=== PATIENT | male | born 1965 | race Caucasian/White ===

== ENCOUNTER 2018-10-02 11:14 | Inpatient (IN) | payer OTHER ==
[~2018-10-02] VITALS: Ht 180.3 cm; Wt 81.8 kg
[2018-10-02 12:25] LABS: HEMATOCRIT 40.5 % (42.0-54.0); HEMOGLOBIN 13.6 g/dL (13.5-17.5); MCH 27.9 pg (26.0-34.0); MCHC 33.6 g/dL (31.0-37.0); MCV 83.2 fL (80.0-100.0); MEAN PLATELET VOLUME 9.5 fL (7.4-10.4); PLATELET COUNT 259 10x3/uL (130-400); RBC 4.87 10x6/uL (4.20-6.10); RDW 14.1 % (11.5-14.5); WBC 20.3 10x3/uL (4.8-10.8)
[2018-10-02 12:45] LABS: INR 1.02 (0.85-1.17); PROTIME 12.9 SECONDS (11.6-15.0)
[2018-10-02 12:47] LABS: D-DIMER-QUANTITATIVE 0.61 ug/mLFEU (0.20-0.54)
[2018-10-02 12:50] LABS: ALBUMIN 3.1 g/dL (3.4-5.0); ALKALINE PHOSPHATASE 141 U/L (46-116); ALT (SGPT) 62 U/L (10-68); BILIRUBIN - TOTAL 0.27 mg/dL (0.2-1.3); CALC OSMOLALITY 283 mosm/kg (275-300); CALCIUM 8.2 mg/dL (8.5-10.1); CARBON DIOXIDE 29.1 mmol/L (21.0-32.0); CHLORIDE - SERUM 104 mmol/L (98-107); CREATININE - SERUM 0.8 mg/dL (0.6-1.3); GLUCOSE 85 mg/dL (74-106); PROTEIN - SERUM 7.1 g/dL (6.4-8.2); SODIUM 142 mmol/L (136-145); UREA NITROGEN 17 mg/dL (7-18); eGFR NON AFRICAN AMERICAN > 90 mL/min (90-120)
[2018-10-02 12:58] LABS: LYMPHOCYTES 20 % (15-50); MONOCYTES 11 % (2-11); NEUTROPHILS 69 % (40-80); PLATELET ESTIMATE NORMAL; ROULEAUX OCC
[2018-10-02 13:01] VITALS: BP 158/99
[2018-10-02 13:15] VITALS: BP 201/128
[2018-10-02 13:30] VITALS: BP 187/125
--- NOTE | 2018-10-02 16:56 | NUR ---
TRANSFERED FROM ER BY STRETCHER. OREINTED TO ROOM. CALL LIGHT IN REACH. WILL CONT. PLAN OF CARE.
[2018-10-02] MEDS ORDERED: LISINOPRIL30 MG PO (17:04)
[2018-10-02 17:16] VITALS: BP 171/97; Ht 180.3 cm; Wt 81.8 kg
--- NOTE | 2018-10-02 17:17 | NUR ---
RECEIVED PT FROM ER. PT IS AAO AND UP AD VIDA. RR EVEN AND LABORED ON EXERTION ON 2L 02. NS INFUSIGN @100ML/HR VIA R.AC PIV. TELEMETRY APPLIED TO PT AND IS CURRENTLY RUNNING 106 SINUS TACH. NORCO ADMINISTERED FOR PAIN LEVEL 10/17 GENERALIZED. PT DENIES ANY FURTHER NEEDS. WILL CTM. FALL PRECAUTIONS IN PLACE
--- NOTE | 2018-10-02 19:48 | NUR ---
EVENING ROUNDS COMPLETED. REPORT RECEIVED. PT SITTING UP IN BED WITH EYES OPEN, RR EVEN AND UNLABORED. BED IN LOW POSITION. NO S/S OF DISTRESS NOTED. INTRODUCED SELF TO PT. PROVIDED PT ONE 250 ML CUP OF APPLE JUICE PER PT REQUEST. PT DENIES FURTHER NEEDS AT THIS TIME. 104 SINUS TAC ON TELEMETRY. CALL LIGHT IN REACH. WILL CTM.
[2018-10-02 20:00] VITALS: BP 134/83
--- NOTE | 2018-10-02 20:14 | NUR ---
ADMINISTERED ORDERED ANALGESIC FOR COMPLAINTS OF PAIN IN NECK AND BACK. PT STATES PAIN IS AN 8 ON A SCALE OF 0-10.
[2018-10-03] VITALS: BP 174/107
--- NOTE | 2018-10-03 00:19 | NUR ---
CALLED NURSE PRACTICIONER FOR [facility] AND NOTIFIED HIM OF PT BLOOD PRESSURE OF 174/107. HE ORDERED 0.1 MG CLONIDINE TAB PO EVERY 8 HOURS FOR PT BLOOD PRESSURE GREATER THAN 170.
--- NOTE | 2018-10-03 00:20 | NUR ---
ADMINISTERED ORDERED ACETAMINOPHEN FOR PT TEMPERATURE OF 101.7 F
[2018-10-03 04:00] VITALS: BP 147/100
--- NOTE | 2018-10-03 04:31 | NUR ---
I have reviewed this patient and I concur with the Shift Assessment completed by the Licensed Practical Nurse today this shift.
[2018-10-03 05:52] LABS: BASOPHILS 0.2 % (0-2); EOSINOPHILS 3.2 % (0-7); HEMATOCRIT 40.9 % (42.0-54.0); HEMOGLOBIN 13.3 g/dL (13.5-17.5); IMMATURE GRANULOCYTES 0.4 % (0-5); LYMPHOCYTES 19.1 % (15-50); MCH 27.3 pg (26.0-34.0); MCHC 32.5 g/dL (31.0-37.0); MEAN PLATELET VOLUME 10.1 fL (7.4-10.4); MONOCYTES 11.2 % (2-11); NEUTROPHILS 65.9 % (40-80); PLATELET COUNT 240 10x3/uL (130-400); RBC 4.87 10x6/uL (4.20-6.10)
[2018-10-03 05:55] LABS: WBC 11.4 10x3/uL (4.8-10.8)
[2018-10-03 06:01] LABS: CALC OSMOLALITY 275 mosm/kg (275-300); CALCIUM 8.1 mg/dL (8.5-10.1); CARBON DIOXIDE 29.1 mmol/L (21.0-32.0); CHLORIDE - SERUM 104 mmol/L (98-107); CREATININE - SERUM 0.9 mg/dL (0.6-1.3); GLUCOSE 90 mg/dL (74-106); POTASSIUM - SERUM 4.2 mmol/L (3.5-5.1); SODIUM 138 mmol/L (136-145); eGFR NON AFRICAN AMERICAN > 90 mL/min (90-120)
[2018-10-03 06:03] LABS: UREA NITROGEN 12 mg/dL (7-18)
--- NOTE | 2018-10-03 06:08 | NUR ---
PT RESTING IN BED WITH EYES CLOSED, RR EVEN AND UNLABORED. OXYGEN AT 4 LITERS BY NASAL CANNULA. BED IN LOW POSITION. NO S/S OF DISTRESS NOTED. CALL LIGHT IN REACH. WILL CTM.
--- NOTE | 2018-10-03 07:00 | NUR ---
RECEIVED REPORT. ASSUMED CARE OF PATIENT. RESTING IN BED WITH EYES CLOSED. RESP EVEN AND UNLABORED. IV FLUIDS INFUSING ORDERED. NO DISTRESS. CALL LIGHT WITHIN REACH.
--- NOTE | 2018-10-03 08:27 | NUR ---
MEDICATED FOR PAIN AT THIS TIME. PATIENT VERY ANXIOUS, SPILLING ITEMS ON TRAY, MUMBLING AND TALKING UNDER HIS BREATH. DURING REPORT THIS AM, NOC NURSE STATED PATIENT WAS TACHYCARDIC AND SEEMED NERVOUS PRIOR TO FALLING ASLEEP. WILL MONITOR.
[2018-10-03 08:34] VITALS: BP 190/104
[2018-10-03 12:59] VITALS: BP 154/98
--- NOTE | 2018-10-03 13:40 | NUR ---
ORANGE JUICE PROVIDED. PATIENT RESTING IN BED WITH EYES CLOSED. IV FLUIDS INFUSING ORDERED. DENIES NEEDS. NO DISTRESS.
--- NOTE | 2018-10-03 14:24 | NUR ---
MEDICATED FOR PAIN AT THIS TIME. NO DISTRESS. IV FLUIDS INFUSING ORDERED.
--- NOTE | 2018-10-03 17:43 | NUR ---
RESTING IN BED WITH EYES OPEN. PATIENT MUMBLING BUT SPEAKS UP WHEN ASKED. DINNER TRAY UNTOUCHED. ENCOURAGED PATIENT TO CONSUME PM MEAL. CALL LIGHT WITHIN REACH. IV FLUIDS INFUSING ORDERED.
[2018-10-03 17:53] VITALS: BP 141/87
--- NOTE | 2018-10-03 19:50 | NUR ---
EVENING ROUNDS COMPLETED. REPORT RECEIVED. PT SITTING UP IN BED WITH EYES OPEN, RR EVEN AND UNLABORED. OXYGEN AT 4 LITERS BY NASAL CANNULA. BED IN LOW POSITION. NO S/S OF DISTRESS NOTED. RT AC PIV INFUSING NORMAL SALINE ORDERED. INTRODUCED SELF TO PT. ADMINISTERED ORDERED CATAPRES 0.1 MG TAB FOR PT BLOOD PRESSURE OF 181/95 AND ORDERED HYDROCODONE 10 PER PT COMPLAINTS OF PAIN IN NECK AND BACK. PT STATES PAIN OF A 7 ON A SCALE OF 0-10. PT DENIES FURTHER NEEDS AT THIS TIME. 70 NORMAL SINUS ON TELEMETRY. CALL LIGHT IN REACH. WILL CTM.
[2018-10-03 20:00] VITALS: BP 181/95
[2018-10-04] VITALS: BP 152/95
--- NOTE | 2018-10-04 00:52 | NUR ---
PT RESTING COMFORTABLY IN BED WITH EYES CLOSED, RR EVEN AND UNLABORED. BED IN LOW POSITION. RIGHT AC PIV INFUSING NS ORDERED. 64 SINUS ON TELEMETRY. CALL LIGHT IN REACH. WILL CTM.
[2018-10-04 04:00] VITALS: BP 156/102
--- NOTE | 2018-10-04 04:58 | NUR ---
I have reviewed this patient and I concur with the Shift Assessment completed by the Licensed Practical Nurse today this shift.
--- NOTE | 2018-10-04 05:52 | NUR ---
PT RESTING COMFORTABLY IN BED WITH EYES CLOSED, RR EVEN AND UNLABORED. BED IN LOW POSITION. NO S/S OF DISTRESS NOTED. CALL LIGHT IN REACH. WILL CTM.
[2018-10-04 06:09] LABS: BASOPHILS 0.2 % (0-2); EOSINOPHILS 7.6 % (0-7); HEMATOCRIT 42.1 % (42.0-54.0); HEMOGLOBIN 14.1 g/dL (13.5-17.5); IMMATURE GRANULOCYTES 0.6 % (0-5); LYMPHOCYTES 22.1 % (15-50); MCH 27.8 pg (26.0-34.0); MCHC 33.5 g/dL (31.0-37.0); MCV 82.9 fL (80.0-100.0); MEAN PLATELET VOLUME 9.9 fL (7.4-10.4); MONOCYTES 10.4 % (2-11); NEUTROPHILS 59.1 % (40-80); PLATELET COUNT 221 10x3/uL (130-400); RBC 5.08 10x6/uL (4.20-6.10); RDW 13.9 % (11.5-14.5); WBC 9.9 10x3/uL (4.8-10.8)
[2018-10-04 06:20] LABS: CALC OSMOLALITY 277 mosm/kg (275-300); CALCIUM 8.6 mg/dL (8.5-10.1); CARBON DIOXIDE 27.8 mmol/L (21.0-32.0); CHLORIDE - SERUM 104 mmol/L (98-107); CREATININE - SERUM 0.7 mg/dL (0.6-1.3); GLUCOSE 93 mg/dL (74-106); POTASSIUM - SERUM 4.2 mmol/L (3.5-5.1); SODIUM 140 mmol/L (136-145); UREA NITROGEN 11 mg/dL (7-18); eGFR NON AFRICAN AMERICAN > 90 mL/min (90-120)
--- NOTE | 2018-10-04 07:00 | NUR ---
RECEIVED REPORT. ASSUMED CARE OF PATIENT. RESTING WITH EYES CLOSED. EASILY AROUSED. RESP EVEN AND UNLABORED. NO DISTRESS. DENIES NEEDS.
--- NOTE | 2018-10-04 08:22 | NUR ---
MEDICATED FOR PAIN AT THIS TIME. NO DISTRESS.
[2018-10-04 08:30] VITALS: BP 181/97
[2018-10-04 12:22] VITALS: BP 146/87
--- NOTE | 2018-10-04 14:32 | NUR ---
PATIENT FOUND WITH 20 CATHETER DISLODGED FROM RIGHT AC AFTER RECEIVING SHOWER. IV CATHETER REMOVED, CATHETER TIP INTACT. NO BLEEDING FROM SITE. THIS TECHNOLOGY TRAINING ASSOCIATE HAS TRIED TWICE TO PLACE IV CATHETER WITHOUT SUCCESS. PATEINT VEINS ARE HARD AND DIFFICULT TO INSERT IV CATHETER. HAVE ASKED THE CHARGE NURSE TO ASSIST WITH PLACING IV CATHETER.
--- NOTE | 2018-10-04 15:00 | NUR ---
MEDCATED FOR PAIN.
--- NOTE | 2018-10-04 15:28 | NUR ---
PATIENT TOLD THIS SOAP WORKER TO TRY IV PLACEMENT AGAIN AFTER 2 OTHER NURSES TRIED AND WERE UNSUCCESSFUL. 20 GAUGE IV PLACED TO RIGHT WRIST X 1 STICK. GOOD BLOOD RETURN, EASY FLUSH. TAPED, DATED AND SECURED. TOLERATED IV PLACEMENT WELL. IV FLUIDS AND ABX ARE INFUSING AT THIS TIME. NO DISTRESS.
--- NOTE | 2018-10-04 16:48 | NUR ---
MEDICATED FOR NAUSEA AT THIS TIME. PATIENT STATES HE HASN'T EATEN MUCH OF HIS LUNCH MEAL AND THE PAIN MEDICATION HAS MADE HIM NAUSEATED.
[2018-10-04 18:49] VITALS: BP 161/88
[2018-10-04 20:00] VITALS: BP 156/94
--- NOTE | 2018-10-04 20:02 | NUR ---
EVENING ROUNDS COMPLETED. REPORT RECEIVED. PT SITTING UP IN BED WITH EYES OPEN, RR EVEN AND UNLABORED. BED IN LOW POSITION. 75 SINUS ON TELEMETRY. NO S/S OF DISTRESS NOTED. INTRODUCED SELF TO PT. ADMINISTERED ORDERED ANALGESIC FOR PT COMPLAINTS OF PAIN IN NECK. PT STATES PAIN OF AN 8 ON A SCALE OF 0-10. PT DENIES FURTHER NEEDS AT THIS TIME. OXYGEN AT 4 LITERS BY NASAL CANNULA. CALL LIGHT IN REACH. WILL CTM.
[2018-10-05 00:18] VITALS: BP 153/100
--- NOTE | 2018-10-05 01:31 | NUR ---
PT LYING IN BED WITH EYES CLOSED, RR EVEN AND UNLABORED. BED IN LOW POSITION. NO S/S OF DISTRESS NOTED. CALL LIGHT IN REACH. WILL CTM.
--- NOTE | 2018-10-05 02:29 | NUR ---
ADMINISTERED ORDERED ANALGESIC FOR COMPLAINTS OF PAIN IN NECK. PT STATES PAIN OF AN 8 ON A SCALE OF 0-10.
[2018-10-05 04:00] VITALS: BP 140/92
--- NOTE | 2018-10-05 04:34 | NUR ---
I have reviewed this patient and I concur with the Shift Assessment completed by the Licensed Practical Nurse today this shift.
[2018-10-05 05:33] LABS: BASOPHILS 0.2 % (0-2); EOSINOPHILS 10.6 % (0-7); HEMATOCRIT 38.8 % (42.0-54.0); HEMOGLOBIN 12.9 g/dL (13.5-17.5); IMMATURE GRANULOCYTES 0.6 % (0-5); LYMPHOCYTES 20.3 % (15-50); MCH 27.2 pg (26.0-34.0); MCHC 33.2 g/dL (31.0-37.0); MCV 81.9 fL (80.0-100.0); MEAN PLATELET VOLUME 9.9 fL (7.4-10.4); MONOCYTES 8.8 % (2-11); NEUTROPHILS 59.5 % (40-80); RBC 4.74 10x6/uL (4.20-6.10); RDW 13.8 % (11.5-14.5); WBC 9.7 10x3/uL (4.8-10.8)
[2018-10-05 05:43] LABS: PLATELET COUNT 268 10x3/uL (130-400)
--- NOTE | 2018-10-05 06:05 | NUR ---
PT LYING ON RIGHT SIDE IN BED WITH EYES CLOSED, RR EVEN AND UNLABORED. PT REFUSES TO WEAR TELEMETRY AT THIS TIME. DENIES FURTHER NEEDS, CALL LIGHT IN REACH. WILL CTM.
[2018-10-05 06:07] LABS: CALC OSMOLALITY 270 mosm/kg (275-300); CALCIUM 8.6 mg/dL (8.5-10.1); CARBON DIOXIDE 27.6 mmol/L (21.0-32.0); CHLORIDE - SERUM 103 mmol/L (98-107); CREATININE - SERUM 0.8 mg/dL (0.6-1.3); GLUCOSE 93 mg/dL (74-106); POTASSIUM - SERUM 4.2 mmol/L (3.5-5.1); SODIUM 135 mmol/L (136-145); eGFR NON AFRICAN AMERICAN > 90 mL/min (90-120)
[2018-10-05 06:09] LABS: UREA NITROGEN 14 mg/dL (7-18)
--- NOTE | 2018-10-05 07:33 | NUR ---
PT RESTING IN BED. NO SIGNS OF DISTRESS. IV TO RIGHT WRIST PATENT NO REDNESS OR TENDERNESS. ON 2L NC. DENIES ANY FUTHER NEED AT THIS TIME. CALL LIGHT IN REACH. BED LOW POSITION. NO FAMILY AT BEDSIDE AT THIS TIME.
[2018-10-05 08:28] VITALS: BP 172/108
[2018-10-05] MEDS ORDERED: OMNICEF300 MG PO (08:52)
--- NOTE | 2018-10-05 12:30 | NUR ---
DISCHARGE INSTRUCTIONS GIVEN. SEEMS TO UNDERSTAND INSTRUCTIONS. IV OUT TIP INTACT. DENIES ANY FUTHER NEED BEFORE LEAVING. LEFT WITH HOSPTIAL STAFF TO GO HOME IN PERSONAL RIDE WITH FAMILY MEMBER.
--- NOTE | 2018-10-05 12:56 | MORECARE ---
CASE MANAGEMENT DISCHARGE SUMMARY PATIENT: LENNY CLEMONS UNIT: [id number] ADM DATE: 10/02/18 AGE: 53 : 63 SEX: M ROOM/BED: D.3410 AUTHOR: NAHEDDOC PHYSICIAN: REFERRING PHYSICIAN: KAVITHA WALDROP MD DATE OF SERVICE: 10/05/18 Discharge Plan Patient Name: LENNY CLEMONS Facility: [facility]:[place] : 1965 Planned Disposition: Home Anticipated Discharge Date: 10/05/18 Discharge Date: 10/05/2018 Expected LOS: 3 Initial Reviewer: [email or web address] Initial Review Date: 10/05/2018 Generated: 10/05/18 1:56 pm Comments DCP- Discharge Planning Updated by [email or web address]: Surjit Salmon on 10/05/18 11:[address] Patient Name: LENNY CLEMONS Admission Status: ER Accout number: [id number] Admission Date: 10-02-2018 : 1965 Admission Diagnosis: Attending: KAVITHA WALDROP Current LOS: 3 Anticipated DC Date: 10-05-2018 Planned Disposition: Home Primary Insurance: [employer] MA[employer]ED [employer]ICA[employer] Discharge Planning Comments: CM MET WITH PT AND PT'S COUSIN IN ROOM TO DISCUSS DISCHARGE PLANNING AND NEEDS.LENNY CLEMONS provided verbal consent to discuss current and ongoing needs with/in the presence of: COUSIN, NICKO SHELL. PT REPORTS LIVING INDEPENDENTLY AND ALONE SINCE HIS PASSED FIVE MONTHS AGO. PT REPORTS BINE "IN BETWEEN PLACES RIGHT NOW" AND LOST HIS HOME AFTER HIS . PT HAS NO MEDICAL EQUIPMENT AND NO OUTSIDE SERVICES ASSISTING IN THE HOME. CM DISCUSSED AVAILABILITY OF HOME HEALTH, REHAB SERVICES AND MEDICAL EQUIPMENT. PT DENIES DISCHARGE NEEDS, REPORTS HIS COUSIN NICKO WILL PICK HIM UP FOR DISCHARGE TO NICKO'S HOME IN [place]. PT REPORTS HE WILL STAY THERE FOR A FEW DAYS. PT WILL DISCHARGE HOME WITH HIS COUSIN WHO IS HERE TO PICK PT UP AT DISCHARGE. PT DENIES DISCHARGE NEEDS. CM TO FOLLOW AND ASSIST IF NEEDED. Sales Representative Graphic Art: Surjit Salmon DCPIA - Discharge Planning Initial Assessment Updated by [email or web address]: Surjit Salmon on 10/05/18 12:51 pm * Is the patient Alert and Oriented? Yes * How many steps to enter\\exit or inside your home? * PCP NONE * Pharmacy [facility] [place] WILL USE [facility] [place] WHILE STAYING WITH COUSIN * Preadmission Environment Home Alone * ADLs Independent * Equipment None * Other Equipment NO MEDICAL EQUIPMENT PROVIDER PREFERENCE * List name and contact numbers for known caregivers / representatives who currently or will assist patient after discharge: RO REICH, * Verbal permission to speak to the caregivers and representatives has been obtained from the patient. Yes * Community resources currently utilized None * Please name any agencies selected above. NONE * Additional services required to return to the preadmission environment? No * Can the patient safely return to the preadmission environment? Yes * Has this patient been hospitalized within the prior 30 days at any hospital? Yes Patient Name: LENNY CLEMONS Page [id number] at 1256 All edits/amendments must be made on the electronic document DICTATION DATE: 10/05/18 1256 EIGHT ARM OPERATOR: PREMA 10/05/18 1256 RPT#: [id number] DC DATE:10/05/18 STATUS: DIS IN [facility] [address] [place] [address] END OF REPORT
== END 2018-10-05 12:31 | disposition home or self-care (01) | DRG 871 ==
LOC: D.ER 11:14 → D.M2 15:25
PROVIDERS: Emergency Medicine; Family Medicine; ADMIT Legal Medicine; ATTEND Legal Medicine
DX: A41.9 Sepsis, unspecified organism (principal); J18.9 Pneumonia, unspecified organism; J96.01 Acute respiratory failure with hypoxia; I16.1 Hypertensive emergency; Y95 Nosocomial condition; Z59.0 Homelessness